=== PATIENT | female | born 1995 | race Caucasian/White ===

== ENCOUNTER 2016-09-14 16:01 | Emergency (ER) | payer OTHER ==
[~2016-09-14] VITALS: Ht 162.6 cm; Wt 83.9 kg
[2016-09-14 16:04] VITALS: TEMP 36.8; Ht 162.6 cm; Wt 83.9 kg
--- NOTE | 2016-09-14 16:54 | DIAGNOSTIC IMAGING REPORT ---
LEFT TOE(S) MIN 2 VIEWS CLINICAL HISTORY: left great toe pain s/p crush injury trauma COMPARISON: None. DISCUSSION: The bones and joint spaces appear intact. There is no evidence of fracture, dislocation or bony disease. There is no evidence for soft tissue swelling. IMPRESSION: Negative study. The above report was generated using voice recognition software. It may contain grammatical, syntax or spelling errors. Electronically signed by: Troy Stevens M.D. 09/14/2016 4:52 PM Dictated Date/Time: 09/14/2016 4:52 PM
--- NOTE | 2016-09-14 17:23 | EMERGENCY ROOM VISIT NOTE ---
ED Visit Note First contact with patient: 16:15 CHIEF COMPLAINT: Left Big toe pain HISTORY OF PRESENT ILLNESS: This 21-year-old female patient presents to the emergency department, ambulatory, complaining of swelling and pain in the left great toe at rest and worse with weight bearing. The patient states she works at the [employer] for [employer]. Approximately 30-45 minutes ago, the patient was carrying trusses out of a trailer. She states she was watching the trusses, and was not paying attention to where her feet were. The patient states approximately 5 trusses and a bunch landed on her left great toe. The patient states they are made of aluminum, and hit her toe and bounced off. The patient reports initial significant pain, and experienced nausea and some mild dizziness. She states that feeling quickly passed, and now she is experiencing pain which she describes "like a bruise". The patient describes the pain as throbbing, dull, achy and rates at 4/10. The patient does have full range of motion. She states the discomfort is at the base of her toenail. She does report some immediate bruising at the base of her toenail and radiating around her big toe. The patient's tetanus vaccination is up-to-date.The patient is able to walk. No numbness or weakness. No ankle pain. There is a small, extremely superficial lacerations on the big toe. The patient is able to move all of their toes and their ankle without pain. No previous fracture to this foot. REVIEW OF SYSTEMS: GENERAL: A 6 system review of systems was completed with positives and pertinent negatives in the HPI. ALLERGIES: None MEDICATIONS: None PMH: None SOCIAL HISTORY: The patient [place] a [employer] student. She denies drug, alcohol, tobacco use. PHYSICAL EXAM: Vital Signs: Reviewed Nurse's notes, vital signs stable. GENERAL : This is a 21-year-old female, in no acute distress, but appears in pain, well- developed, well-nourished. MUSCULOSKELATAL: There is no visual deformity of the left foot. There is no erythema, but mild ecchymosis of the left great toe. There is no warmth. There is tenderness and swelling over the DIP of the left great toe. There is no tenderness over the lateral or medial malleolus. No tenderness of the tib/fib. The range of motion of the big toe is mildly limited secondary to pain. There is no tenderness over the plantar fascia. The skin is intact and there are no lacerations or puncture wounds. Dorsalis pedis pulse 2+. Capillary refill less than 2 seconds. RADIOLOGY: Left Great Toe X-Ray: DISCUSSION: The bones and joint spaces appear intact. There is no evidence of fracture, dislocation or bony disease. There is no evidence for soft tissue swelling. IMPRESSION: Negative study. EMERGENCY DEPARTMENT COURSE: I examined the patient. An X-ray of the left great toe foot was reviewed by myself and radiologist and reveals no acute fracture. The patient was given home-care instructions. The patient was discharged home in good condition. DIFFERENTIAL DIAGNOSIS: Left great toe contusion, left great toe fracture, subungual hematoma, infection, and others. DIAGNOSIS: Left great toe contusion TREATMENT: ORTHOPEDIC INSTRUCTIONS: As discussed in the emergency department, he may experience increased pain with blood under your toenail. If this does occur, either return to the emergency department or see your PCP for drainage of the hematoma. Ibuprofen(Motrin, Advil) may be used for fever or pain. Use 600mg every six hours as needed. Take with food. Avoid using more than 2400mg in a 24 hour period. Do not use 2400mg per day for more than three consecutive days without physician direction. Prolonged inappropriate use can lead to stomach upset or ulcers. (AND/OR) Acetaminophen(Tylenol) may be used for fever or pain. Use 1000mg every six to eight hours as needed. Avoid using more than 3000mg in a 24 hour period. Ice compresses for 20 minutes at a time four times daily for 2-3 days. After the first 2-3 days, use warm compresses on the foot.Please use a barrier device between your skin and the compress. Rest and elevate your injury. Work as tolerated, wearing good supportive footwear and protective toe shoes. Return to the ER immediately for any numbness, tingling, severe pain, extreme swelling in the extremity or as needed. Follow-up with your primary care physician or S in 2 to 3 days for a recheck of your current condition. Current/Historical Medications No Active Prescriptions or Reported Meds Allergies Coded Allergies: No Known Allergies (Unverified , 09/14/16) Vital Signs Date Time Temp Pulse Resp B/P (MAP) Pulse Ox O2 Delivery O2 Flow Rate FiO2 09/14/16 17:28 74 18 114/78 99 09/14/16 16:04 36.8 99 18 114/87 97 Room Air Departure Information Impression Primary Impression: Contusion of left great toe without damage to nail Dispostion Home / Self-Care Condition GOOD Prescriptions No Active Prescriptions or Reported Meds Referrals No Doctor, Assigned (PCP) [facility] Patient Instructions ED Contusion Finger Toe Lucía Martin [facility] Additional Instructions ORTHOPEDIC INSTRUCTIONS: As discussed in the emergency department, he may experience increased pain with blood under your toenail. If this does occur, either return to the emergency department or see your PCP for drainage of the hematoma. Ibuprofen(Motrin, Advil) may be used for fever or pain. Use 600mg every six hours as needed. Take with food. Avoid using more than 2400mg in a 24 hour period. Do not use 2400mg per day for more than three consecutive days without physician direction. Prolonged inappropriate use can lead to stomach upset or ulcers. (AND/OR) Acetaminophen(Tylenol) may be used for fever or pain. Use 1000mg every six to eight hours as needed. Avoid using more than 3000mg in a 24 hour period. Ice compresses for 20 minutes at a time four times daily for 2-3 days. After the first 2-3 days, use warm compresses on the foot.Please use a barrier device between your skin and the compress. Rest and elevate your injury. Work as tolerated, wearing good supportive footwear and protective toe shoes. Return to the ER immediately for any numbness, tingling, severe pain, extreme swelling in the extremity or as needed. Follow-up with your primary care physician or [facility] in 2 to 3 days for a recheck of your current condition. Problem Qualifiers Primary Impression: Contusion of left great toe without damage to nail Encounter type: initial encounter Qualified Codes: S90.112A - Contusion of left great toe without damage to nail, initial encounter
[2016-09-14 17:28] VITALS: BP 114/78; PULSE 74; O2SAT 99
== END 2016-09-14 17:30 | disposition home or self-care (01) ==
LOC: C.EDB 16:02 → C.EDD 17:30
DX: S90.112A Contusion of left great toe without damage to nail, initial encounter (principal); W22.8XXA Striking against or struck by other objects, initial encounter